=== PATIENT | male | born 1950 | race Caucasian/White ===

== ENCOUNTER 2024-09-03 19:27 | Emergency (ER) | payer MEDICARE, SELFPAY ==
[2024-09-03] VITALS (13 sets, daily range): BP systolic 118–145; BP diastolic 66–77; PULSE 74–88; TEMP 37.2; O2SAT 90–95; BMI 25.8
--- NOTE | 2024-09-03 19:43 | CT_ITS ---
The [address] [address] Patient Name: REINA BAR MRN: [id number] date: 1950 Sex: M Assigned Patient Location: ED.MAIN Current Patient Location: ED.MAIN Accession/Order Number: [id number] Exam Date: 09/03/2024 20:37 Report Date: 09/03/2024 20:51 At the request of: PATY ACHARYA Procedure: CT thoracic spine wo con CT Cervical Spine withoutcontrast TECHNIQUE: Axial imaging with 2-D and 3-D reconstruction. The CT exam was performed using one or more the following dose reduction techniques: Automated exposure control, adjustment of the MA and/or Kv according to patient size, or use of the iterative reconstruction technique. COMPARISON: None HISTORY: Fell. Upper back pain POST SURGERY CHANGES: None BONY ALIGNMENT: Straightening with mild reversal mild degenerative listhesis BONY SPINAL CANAL: Patent central bony canal FRACTURE: Fractures of the C4-C5 spinous processes identified. BONY LESIONS: None SOFT TISSUES: Unremarkable DEGENERATIVE CHANGES: Extensive spondylosis greatest at the C6-7 level. Extensive facet degeneration. LUNG APICES: Unremarkable ADDITIONAL FINDINGS: Atherosclerosis of the carotid bifurcations. Right carotid stent present. CT/CT thoracic spine wo con IMPRESSION: Fractures involving the C4 and C5 spinous processes. CT THORACIC SPINE WITHOUT CONTRAST TECHNIQUE: The CT exam was performed using one or more the following dose reduction techniques: Automated exposure control, adjustment of the MA and/or Kv according to patient size, or use of the iterative reconstruction technique. HISTORY: As above COMPARISON: None POST SURGERY CHANGES: None BONY ALIGNMENT: Adequate BONY SPINAL CANAL: Patent central bony canal FRACTURE: None BONY LESIONS: None SOFT TISSUES: Unremarkable DEGENERATIVE CHANGES: None The visualized lung watts are unremarkable. Basilar scarring. The visualized aorta is unremarkable. No obstructive uropathy identified. Right renal cyst. IMPRESSION: NO ACUTE BONY PROCESS. Impression dictated by: Brooks Bonilla M.D. 09/03/2024 8:51 PM Dictation Location: [facility] Electronically authenticated by: [id number] Y Date: 09/03/2024 20:51
--- NOTE | 2024-09-03 19:43 | CT_ITS ---
The [address] [address] Patient Name: REINA BAR MRN: [id number] date: 1950 Sex: M Assigned Patient Location: ED.MAIN Current Patient Location: ED.MAIN Accession/Order Number: [id number] Exam Date: 09/03/2024 20:14 Report Date: 09/03/2024 20:15 At the request of: PATY ACHARYA Procedure: CT head/brain wo con Unenhanced head CT TECHNIQUE: Contiguous axial imaging of the head. The CT exam was performed using one or more the following dose reduction techniques: Automated exposure control, adjustment of the MA and/or Kv according to patient size, or use of the iterative reconstruction technique. COMPARISON: 01/02/2021 HISTORY: Fell. Injury. VENTRICLES: Within normal limits ATROPHY: Diffuse atrophy BRAIN PARENCHYMA: Decreased density of the white matter is most consistent with chronic small vessel disease. HEMORRHAGE: None HERNIATION: No mass effect or herniation INFARCTION: No recent vascular distribution infarction is seen. EXTRA-AXIAL FLUID COLLECTIONS None MIDBRAIN: Unremarkable DENNISE: Unremarkable MEDULLA: Unremarkable SINUSES: Unremarkable ORBITS: Grossly unremarkable MASTOIDS: Unremarkable BONY STRUCTURES Intact ADDITIONAL FINDINGS: CT/CT head/brain wo con IMPRESSION: No acute findings. Impression dictated by: Brooks Bonilla M.D. 09/03/2024 8:15 PM Dictation Location: [facility] Electronically authenticated by: [id number] Y Date: 09/03/2024 20:15
--- NOTE | 2024-09-03 19:43 | CT_ITS ---
The [address] [address] Patient Name: REINA BAR MRN: [id number] date: 1950 Sex: M Assigned Patient Location: ED.MAIN Current Patient Location: ED.MAIN Accession/Order Number: [id number] Exam Date: 09/03/2024 20:37 Report Date: 09/03/2024 20:51 At the request of: PATY ACHARYA Procedure: CT thoracic spine wo con CT Cervical Spine withoutcontrast TECHNIQUE: Axial imaging with 2-D and 3-D reconstruction. The CT exam was performed using one or more the following dose reduction techniques: Automated exposure control, adjustment of the MA and/or Kv according to patient size, or use of the iterative reconstruction technique. COMPARISON: None HISTORY: Fell. Upper back pain POST SURGERY CHANGES: None BONY ALIGNMENT: Straightening with mild reversal mild degenerative listhesis BONY SPINAL CANAL: Patent central bony canal FRACTURE: Fractures of the C4-C5 spinous processes identified. BONY LESIONS: None SOFT TISSUES: Unremarkable DEGENERATIVE CHANGES: Extensive spondylosis greatest at the C6-7 level. Extensive facet degeneration. LUNG APICES: Unremarkable ADDITIONAL FINDINGS: Atherosclerosis of the carotid bifurcations. Right carotid stent present. CT/CT cervical spine wo con IMPRESSION: Fractures involving the C4 and C5 spinous processes. CT THORACIC SPINE WITHOUT CONTRAST TECHNIQUE: The CT exam was performed using one or more the following dose reduction techniques: Automated exposure control, adjustment of the MA and/or Kv according to patient size, or use of the iterative reconstruction technique. HISTORY: As above COMPARISON: None POST SURGERY CHANGES: None BONY ALIGNMENT: Adequate BONY SPINAL CANAL: Patent central bony canal FRACTURE: None BONY LESIONS: None SOFT TISSUES: Unremarkable DEGENERATIVE CHANGES: None The visualized lung watts are unremarkable. Basilar scarring. The visualized aorta is unremarkable. No obstructive uropathy identified. Right renal cyst. IMPRESSION: NO ACUTE BONY PROCESS. Impression dictated by: Brooks Bonilla M.D. 09/03/2024 8:51 PM Dictation Location: [facility] Electronically authenticated by: [id number] Y Date: 09/03/2024 20:51
--- NOTE | 2024-09-03 19:43 | XR_ITS ---
[place] [id number] Patient Name: REINA BAR MRN: [id number] date: 1950 Sex: M Assigned Patient Location: ED.MAIN Current Patient Location: ED.MAIN Accession/Order Number: [id number] Exam Date: 09/03/2024 20:05 Report Date: 09/03/2024 20:07 At the request of: PATY ACHARYA Procedure: XR chest 1V Plain film chest Single view HISTORY: Fell. Injury. Upper back pain. COMPARISON: 09/05/2021 FINDINGS: SUPPORT DEVICES: None POSTSURGICAL CHANGES: None HEART: Within normal limits PULMONARY BREANNE: Within normal limits MEDIASTINUM: Unremarkable LUNGS AND PLEURA: No acute lung process, pleural effusion or pneumothorax identified. Hyperinflation. BONY STRUCTURES: Intact ADDITIONAL FINDINGS None XR/XR chest 1V IMPRESSION: No acute process. Impression dictated by: Brooks Bonilla M.D. 09/03/2024 8:07 PM Dictation Location: [facility] Electronically authenticated by: [id number] Y Date: 09/03/2024 20:07
--- NOTE | 2024-09-03 19:44 | ED.GENADUL1 ---
HPI HPI - General Adult General Chief complaint: Extremity Problem, Nontraumatic Stated complaint: Head Injury Time Seen by Provider: 09/03/24 19:39 Source: patient Mode of arrival: walk-in Limitations: no limitations History of Present Illness HPI narrative: 74 year old male presents to the ED for pain to his chest and upper back s/p injury 09/01/24. States he was on a riding lawnmower traveling at a faster rate of speed. Reports he attempted to duck to miss a large branch, but did not go down far enough. The branch caught the top of his head. States it caused him to jerk back. States he almost fell off of the lawnmower. Denies LOC, vision changes, weakness, dizziness, N/V. He was having mid chest discomfort this morning with inspiration. He developed upper back pain here in the ED. He has abrasions to the top of his scalp. 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 He took Motrin this morning. Related Data Home Medications ?Medication ?Instructions ?Recorded ?Confirmed amlodipine 10 mg tablet mg 09/03/24 aspirin 81 mg capsule 81 mg PO DAILY 09/03/24 09/03/24 atorvastatin 80 mg tablet mg 09/03/24 ezetimibe 10 mg tablet mg 09/03/24 hydroxyzine pamoate 25 mg capsule mg 09/03/24 ibuprofen 600 mg tablet mg 09/03/24 umeclidinium 62.5 mcg-vilanterol inhalation 09/03/24 25 mcg/actuation powdr for inhalation (Anoro Ellipta) Previous Rx's ?Medication ?Instructions ?Recorded tizanidine 2 mg capsule (Zanaflex) 2 mg PO Q8H PRN muscle spasticity 09/03/24 #15 caps Allergies Allergy/AdvReac Type Severity Reaction Status Date / Time acetaminophen (From Vicodin) AdvReac Mild Nausea Verified 09/03/24 19:36 hydrocodone (From Vicodin) AdvReac Mild Nausea Verified 09/03/24 19:36 Opioid HPI Opioid Management Most Recent Opioid Data: Last Pain Scale 4 09/03/24, 21:04 Last ED Pain Assessment 09/03/24, 21:04 Review of Systems ROS Constitutional Denies: fever or chills Eyes Denies: change in vision Ears, nose, mouth, and throat Reports: neck pain; Denies: throat pain Cardiovascular Reports: chest pain Respiratory Denies: shortness of breath Gastrointestinal Denies: abdominal pain, nausea or vomiting Genitourinary Denies: painful urination Musculoskeletal Reports: back pain and neck pain Integumentary/Breast Reports: sores; Denies: rash Neurological Reports: headache; Denies: numbness in extremities, weakness in extremities or dizziness [facility] Medical History (Updated 09/03/24 @ 21:03 by Danisha Dey) Chronic obstructive pulmonary disease ?J44.9 - Chronic obstructive pulmonary disease, unspecified (ICD-10) Hypertension ?I10 - Essential (primary) hypertension (ICD-10) High cholesterol ?E78.00 - Pure hypercholesterolemia, unspecified (ICD-10) Social History Little interest or pleasure in doing things: not at all Feeling down, depressed, or hopeless: not at all Exam Constitutional Vital Signs, click to edit/add: Last Vital Signs Temp 98.9 F 09/03/24 19:37 Pulse 74 09/03/24 21:03 Resp 19 09/03/24 21:03 BP 120/66 09/03/24 21:03 Pulse Ox 93 L 09/03/24 21:03 O2 Del Method Room Air 09/03/24 19:37 Common normals: no apparent distress and oriented x3 General appearance: cooperative HENMT Common normals: external ears normal and moist oral mucous membranes Head and scalp: abrasion (Multiple to top of scalp.); no Perez's sign and no raccoon eyes Mouth: lip normal Eye Common normals: PERRL, EOMs intact bilaterally, conjunctivae normal and no scleral icterus Neck & C-Spine Common normals: supple Cervical spine: paracervical muscle tenderness and paracervical muscle spasm; no cervical spine tenderness Chest Chest: symmetrical chest wall rise and tenderness (upper chest bilaterally) Respiratory Common normals: normal respiratory effort and clear to auscultation bilaterally Effort & inspection: able to speak in complete sentences and symmetric chest movement Cardio Common normals: regular rate and regular rhythm GI Common normals: soft to palpation and non-tender Back & Pelvis Thoracic spine/upper back: normal to inspection and paraspinal muscle tenderness; no thoracic spinal tenderness Lumbar spine/lower back: normal to inspection; no lumbar spinal tenderness, no paraspinal muscle tenderness and no paraspinal muscle spasm Neuro Common normals: oriented x3, CN's II-XII intact bilaterally, moves all extremities and no focal motor deficits Sensorium/orientation: awake and alert Speech: speech normal Gait (neuro): normal gait Course Vital Signs Vital signs: Vital Signs Blood Pressure 145/77 H 09/03/24 19:31 Pulse Oximetry 92 L 09/03/24 19:31 Temperature 98.9 F 09/03/24 19:37 Pulse Rate 74 09/03/24 21:03 Respiratory Rate 19 09/03/24 21:03 Blood Pressure 120/66 09/03/24 21:03 Pulse Oximetry 93 L 09/03/24 21:03 Oxygen Delivery Method Room Air 09/03/24 19:37 Medical Decision Making MDM Narrative Medical decision making narrative: CT scans of the head, cervical spine, and thoracic spine were negative for acute findings; see below. Chest x-ray was negative for acute findings. Findings were discussed with the patient. He reported improvement here with Zanaflex. He was accompanied by his significant other for a ride home. A prescription was provided for Zanaflex. Follow up with pcp for a recheck, further evalaution and treatment. Medical Records Medical records reviewed: Yes I reviewed the patient's medical records Imaging Data CT and XR: Attestation: I have reviewed the pertinent imaging results. Radiologist's impression: ITS Impressions Cervical Spine CT 09/03/24 19:43 IMPRESSION: Fractures involving the C4 and C5 spinous processes. CT THORACIC SPINE WITHOUT CONTRAST TECHNIQUE: The CT exam was performed using one or more the following dose reduction techniques: Automated exposure control, adjustment of the MA and/or Kv according to patient size, or use of the iterative reconstruction technique. HISTORY: As above COMPARISON: None POST SURGERY CHANGES: None BONY ALIGNMENT: Adequate BONY SPINAL CANAL: Patent central bony canal FRACTURE: None BONY LESIONS: None SOFT TISSUES: Unremarkable DEGENERATIVE CHANGES: None The visualized lung watts are unremarkable. Basilar scarring. The visualized aorta is unremarkable. No obstructive uropathy identified. Right renal cyst. IMPRESSION: NO ACUTE BONY PROCESS. Impression dictated by: Brooks Bonilla M.D. 09/03/2024 8:51 PM Dictation Location: [place] [address] Electronically authenticated by: [id number] Y Date: 09/03/2024 20:51 Chest X-Ray 09/03/24 19:43 IMPRESSION: No acute process. Impression dictated by: Brooks Bonilla M.D. 09/03/2024 8:07 PM Dictation Location: [employer] Electronically authenticated by: [id number] Y Date: 09/03/2024 20:[address] 09/03/24 19:43 IMPRESSION: No acute findings. Impression dictated by: Brooks Bonilla M.D. 09/03/2024 8:15 PM Dictation Location: [employer] Electronically authenticated by: [id number] Y Date: 09/03/2024 20:[address] 09/03/24 19:43 IMPRESSION: Fractures involving the C4 and C5 spinous processes. CT THORACIC SPINE WITHOUT CONTRAST TECHNIQUE: The CT exam was performed using one or more the following dose reduction techniques: Automated exposure control, adjustment of the MA and/or Kv according to patient size, or use of the iterative reconstruction technique. HISTORY: As above COMPARISON: None POST SURGERY CHANGES: None BONY ALIGNMENT: Adequate BONY SPINAL CANAL: Patent central bony canal FRACTURE: None BONY LESIONS: None SOFT TISSUES: Unremarkable DEGENERATIVE CHANGES: None The visualized lung watts are unremarkable. Basilar scarring. The visualized aorta is unremarkable. No obstructive uropathy identified. Right renal cyst. IMPRESSION: NO ACUTE BONY PROCESS. Impression dictated by: Brooks Bonilla M.D. 09/03/2024 8:51 PM Dictation Location: [employer] Electronically authenticated by: [id number] Y Date: 09/03/2024 20:51 Discharge Plan Discharge Chief Complaint: Extremity Problem, Nontraumatic Clinical Impression: Head injury, Cervical strain, Back pain, Chest wall muscle strain Patient Disposition: Home, Self-Care Time of Disposition Decision: 21:03 Condition: Good Mode of Transportation: Private Vehicle Prescriptions / Home Meds: New tizanidine [Zanaflex] 2 mg capsule 2 mg PO Q8H PRN (Reason: muscle spasticity) Qty: 15 0RF No Action ibuprofen 600 mg tablet aspirin 81 mg capsule 81 mg PO DAILY atorvastatin 80 mg tablet amlodipine 10 mg tablet hydroxyzine pamoate 25 mg capsule ezetimibe 10 mg tablet umeclidinium-vilanterol [Anoro Ellipta] 62.5-25 mcg/actuation blister with device INHALATION Print Language: Ukrainian Instructions: Cervical Strain (ED), Head Injury (ED), Back Pain (ED), Chest Wall Pain (ED) Additional Instructions: Return to the ER for worsening symptoms. Referrals: Physician,Non-Staff, [Physician] - 1 week Discharge Date/Time: 09/03/24 21:10
[2024-09-03] MEDS: TIZANIDINE HCL 4 MG TABLET 2 MG PO (19:53)
--- NOTE | 2024-09-03 20:15 | PC.NURSE ---
this patient is aware waiting on ct & x-ray results too come back, this patient voices n concerns and shows no signs of distress
--- NOTE | 2024-09-03 21:10 | PC.NURSE ---
i gave this patient verbal and written discharge orders along with 1 e-script, and this patient voices yes to understanding these. at time of discharge this patient voices no concerns and show no signs of distress
== END 2024-09-03 21:10 | disposition home or self-care (01) ==
PROVIDERS: Emergency Provider Internal Medicine; PCP Internal Medicine
DX: S29.012A Strain of muscle and tendon of back wall of thorax, initial encounter (principal); S29.011A Strain of muscle and tendon of front wall of thorax, initial encounter; S16.1XXA Strain of muscle, fascia and tendon at neck level, initial encounter; S00.01XA Abrasion of scalp, initial encounter; W22.09XA Striking against other stationary object, initial encounter; Y93.H2 Activity, gardening and landscaping; S12.300A Unspecified displaced fracture of fourth cervical vertebra, initial encounter for closed fracture; S12.400A Unspecified displaced fracture of fifth cervical vertebra, initial encounter for closed fracture; S09.90XA Unspecified injury of head, initial encounter
CPT/HCPCS: 70450; 71045; 72125; 72128; 99285